=== PATIENT | female | born 1990 | race American Indian/Alaskan Native ===

== ENCOUNTER 2019-01-20 13:56 | Emergency (ER) | payer SELFPAY ==
[2019-01-20 14:17] VITALS: BP 127/78
--- NOTE | 2019-01-20 14:17 | Event Note ---
ED Screening Note Date of service: 01/20/19 Time: 14:15 ED Screening Note: 28 y/o female comes in for abd cramping. G1 Po LMP 12/18/18. This initial assessment/diagnostic orders/clinical plan/treatment(s) is/are subject to change based on patients health status, clinical progression and re-assessment by fellow clinical providers in the ED. Further treatment and workup at subsequent clinical providers discretion. Patient/guardian urged not to elope from the ED as their condition may be serious if not clinically assessed and managed. Initial orders include:
--- NOTE | 2019-01-20 15:02 | Emergency Department Report ---
ED N/V/D HPI - General Chief complaint: Nausea/Vomiting/Diarrhea Stated complaint: CRAMPING/NAUSEA Time Seen by Provider: 01/20/19 14:54 Source: patient Mode of arrival: Ambulatory Limitations: No Limitations - History of Present Illness Initial comments: 28-year-old -[place] female presents to ED with abdominal cramping, nausea, but no vomiting. Symptoms have been present for the past 3 days. No fever, chills or night sweats. She has not taken any medications for her symptoms. She rates symptoms as moderate in severity. -: Gradual, days(s) Description of Vomiting: food contents - Related Data Previous Rx's Medication Instructions Recorded Last Taken Type Ondansetron [Zofran ODT TAB] 4 mg PO ONCE 7 Days #10 tab.rapdis 01/20/19 Unknown Rx raNITIdine HCl [Acid Control] 75 mg PO DAILY #30 tablet 01/20/19 Unknown Rx Allergies Allergy/AdvReac Type Severity Reaction Status Date / Time No Known Allergies Allergy Verified 01/20/19 14:01 ED Review of Systems ROS: Stated complaint: CRAMPING/NAUSEA Other details as noted in HPI Comment: All other systems reviewed and negative Respiratory: denies: cough Cardiovascular: denies: chest pain Endocrine: denies: flushing Gastrointestinal: abdominal pain, nausea, vomiting Genitourinary: denies: urgency ED Past Medical Hx - Past Medical History Previous Medical History?: Yes Additional medical history: menieres disease - Surgical History Additional Surgical History: bilateral ear tubes,multiple as , at 12 - Social History Smoking Status: Never Smoker Substance Use Type: None - Medications Home Medications: Home Medications Medication Instructions Recorded Confirmed Last Taken Type Ondansetron [Zofran ODT TAB] 4 mg PO ONCE 7 Days #10 tab.rapdis 01/20/19 Unknown Rx raNITIdine HCl [Acid Control] 75 mg PO DAILY #30 tablet 01/20/19 Unknown Rx ED Physical Exam - General Limitations: No Limitations General appearance: alert, in no apparent distress - Head Head exam: Present: atraumatic, normocephalic - Eye Eye exam: Present: normal appearance Pupils: Present: normal accommodation - ENT ENT exam: Present: normal exam - Neck Neck exam: Present: normal inspection - Respiratory Respiratory exam: Present: normal lung sounds bilaterally - Cardiovascular Cardiovascular Exam: Present: regular rate, normal rhythm - GI/Abdominal GI/Abdominal exam: Present: soft, normal bowel sounds - Back Exam Back exam: Present: normal inspection - Neurological Exam Neurological exam: Present: alert, oriented X3 - Skin Skin exam: Present: warm, normal color ED Course Vital Signs 01/20/19 14:13 Temperature 97.9 F Pulse Rate 109 H Respiratory 20 Rate Blood Pressure 127/78 O2 Sat by Pulse 99 Oximetry ED Medical Decision Making - Lab Data Result diagrams: 01/20/19 15:06 01/20/19 15:06 Critical care attestation.: If time is entered above; I have spent that time in minutes in the direct care of this critically ill patient, excluding procedure time. ED Disposition Clinical Impression: Nausea Gastritis Qualifiers: Gastritis type: unspecified gastritis Chronicity: acute Gastritis bleeding: without bleeding Qualified Code(s): K29.00 - Acute gastritis without bleeding Disposition: DC-01 TO HOME OR SELFCARE Is pt being admited?: No Does the pt Need Aspirin: No Condition: Stable Instructions: Acute Nausea and Vomiting (ED) Prescriptions: raNITIdine HCl [Acid Control] 75 mg PO DAILY #30 tablet Ondansetron [Zofran ODT TAB] 4 mg PO ONCE 7 Days #10 tab.rapdis Referrals: CHAYA PARRA MD [Primary Care Provider] - 3-5 Days
[2019-01-20 15:10] LABS: HCG Qualitative,Urine Negative (Negative)
[2019-01-20 15:13] LABS: Bacteria,Urine 1+ /HPF (Negative); Bilirubin,Urine NEG (Negative); Blood,Urine NEG (Negative); Color,Urine Yellow (Yellow); Mucus,Urine FEW /HPF; Urobilinogen,Urine < 2.0 mg/dL (<2.0)
[2019-01-20 15:29] LABS: Basophils % (Auto) 0.4 % (0.0-1.8); Eosinophils # (Auto) 0.1 K/mm3 (0.0-0.4); Eosinophils % (Auto) 1.7 % (0.0-4.3); Hematocrit 38.1 % (30.3-42.9); Hemoglobin 12.4 gm/dl (10.1-14.3); Lymphocytes # (Auto) 1.8 K/mm3 (1.2-5.4); Lymphocytes % (Auto) 24.9 % (13.4-35.0); Mean Corpuscular HGB Conc 33 % (30-34); Mean Corpuscular Volume 79 fl (79-97); Monocytes # (Auto) 0.6 K/mm3 (0.0-0.8); Monocytes % (Auto) 8.3 % (0.0-7.3); Platelet Count 194 K/mm3 (140-440); Red Cell Distribution Width 15.9 % (13.2-15.2)
[2019-01-20] MEDS ORDERED: ZOFRAN ODT PO ONE (16:50)
[2019-01-20 16:57] LABS: Alanine Aminotransferase 13 units/L (7-56); Albumin 3.9 g/dL (3.9-5); BUN/Creatinine Ratio 23; Blood Urea Nitrogen 16 mg/dL (7-17); Calcium 9.4 mg/dL (8.4-10.2); Hemolysis Index 7
== END 2019-01-20 17:10 | disposition home or self-care (01) ==
LOC: ED 13:56
DX: K29.00 Acute gastritis without bleeding (principal); Z79.899 Other long term (current) drug therapy
CPT/HCPCS: 36415; 80053; 81001; 81025; 84703; 85025; Q0162

== ENCOUNTER 2019-02-08 21:50 | Emergency (ER) | payer SELFPAY ==
--- NOTE | 2019-02-08 22:09 | Emergency Department Report ---
Blank Doc - Documentation Documentation: This is a 28-year-old female that presents with abdominal pain with nausea. This initial assessment/diagnostic orders/clinical plan/treatment(s) is/are subject to change based on patient's health status, clinical progression and re- assessment by fellow clinical providers in the ED. Further treatment and workup at subsequent clinical providers discretion. Patient/guardians urged not to elope from the ED as their condition may be serious if not clinically assessed and managed. Initial orders include: 1- Patient sent to [facility] for further evaluation and treatment 2- UA
[2019-02-08 22:10] VITALS: BP 134/75
[2019-02-08 23:03] LABS: Basophils % (Auto) 0.3 % (0.0-1.8); Eosinophils # (Auto) 0.1 K/mm3 (0.0-0.4); Eosinophils % (Auto) 1.7 % (0.0-4.3); Hematocrit 35.4 % (30.3-42.9); Hemoglobin 11.7 gm/dl (10.1-14.3); Lymphocytes # (Auto) 2.2 K/mm3 (1.2-5.4); Lymphocytes % (Auto) 26.3 % (13.4-35.0); Mean Corpuscular HGB Conc 33 % (30-34); Mean Corpuscular Volume 80 fl (79-97); Monocytes # (Auto) 0.5 K/mm3 (0.0-0.8); Monocytes % (Auto) 6.5 % (0.0-7.3); Platelet Count 191 K/mm3 (140-440); Red Blood Count 4.45 M/mm3 (3.65-5.03)
[2019-02-08 23:27] LABS: Alanine Aminotransferase 13 units/L (7-56); BUN/Creatinine Ratio 24; Blood Urea Nitrogen 17 mg/dL (7-17); Calcium 9.2 mg/dL (8.4-10.2); Hemolysis Index 0
[2019-02-09 01:26] LABS: Bilirubin,Urine NEG (Negative); Blood,Urine NEG (Negative); Color,Urine Yellow (Yellow); Mucus,Urine 1+ /HPF; Urobilinogen,Urine < 2.0 mg/dL (<2.0)
--- NOTE | 2019-02-09 04:15 | Emergency Department Report ---
ED Female HPI - General Chief complaint: Abdominal Pain Stated complaint: ABDOMINAL PAIN Time Seen by Provider: 02/08/19 22:07 Source: patient Mode of arrival: Ambulatory Limitations: No Limitations - History of Present Illness MD Complaint: pelvic pain - Related Data Previous Rx's Medication Instructions Recorded Last Taken Type Ondansetron [Zofran ODT TAB] 4 mg PO ONCE 7 Days #10 tab.rapdis 01/20/19 Unknown Rx raNITIdine HCl [Acid Control] 75 mg PO DAILY #30 tablet 01/20/19 Unknown Rx Pnv,Calcium 72/Iron/Folic Acid 1 each PO DAILY #30 tablet 02/09/19 Unknown Rx [ Plus Tablet] Allergies Allergy/AdvReac Type Severity Reaction Status Date / Time Iodinated Contrast- Oral and Allergy Nausea Verified 02/08/19 21:56 IV Dye ED Review of Systems ROS: Stated complaint: ABDOMINAL PAIN Other details as noted in HPI ED Past Medical Hx - Past Medical History Previous Medical History?: Yes Additional medical history: menieres disease - Surgical History Additional Surgical History: bilateral ear tubes,multiple as , at 12 - Social History Smoking Status: Never Smoker - Medications Home Medications: Home Medications Medication Instructions Recorded Confirmed Last Taken Type Ondansetron [Zofran ODT TAB] 4 mg PO ONCE 7 Days #10 tab.rapdis 01/20/19 Unkn own Rx raNITIdine HCl [Acid Control] 75 mg PO DAILY #30 tablet 01/20/19 Unknown Rx Pnv,Calcium 72/Iron/Folic Acid 1 each PO DAILY #30 tablet 02/09/19 Unknown Rx [ Plus Tablet] ED Physical Exam - General Limitations: No Limitations ED Course Vital Signs 02/08/19 22:05 Temperature 98.7 F Pulse Rate 98 H Respiratory 18 Rate Blood Pressure 134/75 O2 Sat by Pulse 100 Oximetry ED Medical Decision Making - Lab Data Result diagrams: 02/08/19 22:42 02/08/19 22:42 Critical care attestation.: If time is entered above; I have spent that time in minutes in the direct care of this critically ill patient, excluding procedure time. ED Disposition Disposition: DC-01 TO HOME OR SELFCARE Condition: Stable Instructions: (ED), Abdominal Pain (ED) Prescriptions: Pnv,Calcium 72/Iron/Folic Acid [ Plus Tablet] 1 each PO DAILY #30 tablet Referrals: [facility] [Provider Group] - 3-5 Days [place] CHAYA SMITH MD [Primary Care Provider] - 3-5 Days
--- NOTE | 2019-02-10 08:40 | Ultrasound Report ---
OB Ultrasound HISTORY: Right lower quadrant pain for the past 2 weeks. Beta hCG of 1400 TECHNIQUE: Grayscale and color Doppler imaging performed. COMPARISON: None FINDINGS: Transabdominally and endovaginal imaging performed. Uterus measures 10.5 x 5.3 x 7.7 cm with endometrial echocomplex measuring 2 cm. There is a tiny cyst ic structure in the uterine body near the fundus with no yolk sac or pole identified. The mean sac diameter is 5 mm which would correspond with an EGA of 5 weeks and 2 days. There is a 2.6 cm simp le right ovarian cyst. The left ovary contains a 3.2 cm cyst which is slightly more complex with inte rnal echoes and may be hemorrhagic. IMPRESSION: 1. Tiny cystic intrauterine structure as above could represent an early gestation but no pole o r yolk sac identified at this time. Short-term beta hCG and possible ultrasound recommended for critical access hospital evaluation. 2. Bilateral ovarian cysts, mildly complex on the left and may be hemorrhagic. Signer Name: Dmitriy Hopkins MD Signed: 02/09/2019 3:29 AM Workstation Name: [id number]
== END 2019-02-09 04:15 | disposition home or self-care (01) ==
LOC: ED 21:50
DX: N83.201 Unspecified ovarian cyst, right side (principal); Z91.041 Radiographic dye allergy status; Z96.22 Myringotomy tube(s) status; Z79.899 Other long term (current) drug therapy
CPT/HCPCS: 36415; 76801; 76817; 80053; 81001; 83690; 84702; 84703; 85025; 99284

== ENCOUNTER 2019-02-14 23:21 | Emergency (ER) | payer MEDICAID ==
[2019-02-15 00:08] LABS: Basophils # (Auto) 0.1 K/mm3 (0.0-0.1); Basophils % (Auto) 1.4 % (0.0-1.8); Eosinophils # (Auto) 0.1 K/mm3 (0.0-0.4); Eosinophils % (Auto) 1.4 % (0.0-4.3); Hematocrit 34.8 % (30.3-42.9); Hemoglobin 11.6 gm/dl (10.1-14.3); Lymphocytes # (Auto) 2.4 K/mm3 (1.2-5.4); Lymphocytes % (Auto) 25.9 % (13.4-35.0); Mean Corpuscular HGB Conc 33 % (30-34); Mean Corpuscular Volume 79 fl (79-97); Monocytes # (Auto) 0.6 K/mm3 (0.0-0.8); Monocytes % (Auto) 6.8 % (0.0-7.3); Platelet Count 209 K/mm3 (140-440); Red Blood Count 4.42 M/mm3 (3.65-5.03); Red Cell Distribution Width 15.9 % (13.2-15.2)
[2019-02-15 00:30] LABS: Bilirubin,Urine NEG (Negative); Blood,Urine LG (Negative); Color,Urine Red (Yellow); Mucus,Urine FEW /HPF; Urobilinogen,Urine < 2.0 mg/dL (<2.0)
[2019-02-15 00:34] LABS: RBC,Urine > 182.0 /HPF (0.0-6.0); WBC,Urine > 182.0 /HPF (0.0-6.0)
--- NOTE | 2019-02-15 01:13 | Ultrasound Report ---
Transabdominal and transvaginal OB pelvic ultrasound INDICATION / CLINICAL INFORMATION: Vaginal bleeding and passing clots for one day. COMPARISON: None available. FINDINGS: TRANSABDOMINAL: The uterus measures 9.7 x 5.4 x 5.9 cm. The endometrial stripe measures 1.1 cm AP. No fibroids are seen. I do not identify an IUP. The right ovary measures 3.7 x 1.6 x 3.6 cm and contain s a 2.3 cm cyst. The left ovary measures 5.1 x 4.0 x 4.4 cm and contains a 2.7 cm cyst. No free fluid is seen. TRANSVAGINAL: There is a small complex sac like structure in the lower uterine segment measuring 5 we eks 5 days. I do not identify a pole or cardiac activity. The right ovary measures 2.2 x 1.8 x 2.5 cm. The left ovary measures 4.7 x 2.2 x 4.4 cm. There is a 3.4 cm complex cyst in the left ovary. Normal blood flow is seen to both ovaries on Doppler exam. There is a trace amount of free fluid in the cul-de-sac. IMPRESSION: 1. Small saclike structure in the lower uterine segment probably represents a missed /abortio n in progress. Depending on clinical findings, sonographic follow-up is recommended in 7-10 days. 2. 3.4 cm corpus luteal cyst in the left ovary. Signer Name: Carlos Hernández MD Signed: 02/15/2019 1:09 AM Workstation Name: [id number]
--- NOTE | 2019-02-15 02:11 | Emergency Department Report ---
ED HPI - General Chief complaint: Vaginal Bleeding Stated complaint: PASSED A BLOOD CLOT Time Seen by Provider: 02/15/19 01:30 Source: patient, EMS Mode of arrival: Ambulatory Limitations: No Limitations - History of Present Illness Initial comments: Patient is a 28-year-old female presents the emergency room with complaints of vaginal bleeding that began tonight. She did pass one blood clot into the toilet. she denies any abdominal pain, urinary symptoms, nausea, vomiting, diarrhea, fever. Last mental cycle was December 18. Patient has not seen an HELICOPTER DISPATCHER. She denies any past medical history or allergies to medications. /P:0/A:1 - Related Data Previous Rx's Medication Instructions Recorded Last Taken Type Ondansetron [Zofran ODT TAB] 4 mg PO ONCE 7 Days #10 tab.rapdis 01/20/19 Unknown Rx raNITIdine HCl [Acid Control] 75 mg PO DAILY #30 tablet 01/20/19 Unknown Rx Pnv,Calcium 72/Iron/Folic Acid 1 each PO DAILY #30 tablet 02/09/19 Unknown Rx [ Plus Tablet] cephALEXin [Keflex] 500 mg PO BID 7 Days #14 capsule 02/15/19 Unknown Rx Allergies Allergy/AdvReac Type Severity Reaction Status Date / Time Iodinated Contrast- Oral and Allergy Nausea Verified 02/08/19 21:56 IV Dye ED Review of Systems ROS: Stated complaint: PASSED A BLOOD CLOT Other details as noted in HPI Comment: All other systems reviewed and negative ED Past Medical Hx - Past Medical History Previous Medical History?: Yes Additional medical history: menieres disease - Surgical History Past Surgical History?: Yes Additional Surgical History: bilateral ear tubes,multiple as , at 12 - Social History Smoking Status: Never Smoker - Medications Home Medications: Home Medications Medication Instructions Recorded Confirmed Last Taken Type Ondansetron [Zofran ODT TAB] 4 mg PO ONCE 7 Days #10 tab.rapdis 01/20/19 Unknown Rx raNITIdine HCl [Acid Control] 75 mg PO DAILY #30 tablet 01/20/19 Unknown Rx Pnv,Calcium 72/Iron/Folic Acid 1 each PO DAILY #30 tablet 02/09/19 Unknown Rx [ Plus Tablet] cephALEXin [Keflex] 500 mg PO BID 7 Days #14 capsule 02/15/19 Unknown Rx ED Physical Exam - General Limitations: No Limitations General appearance: alert, in no apparent distress - Head Head exam: Present: atraumatic, normocephalic - Eye Eye exam: Present: normal appearance - ENT ENT exam: Present: mucous membranes moist - Respiratory Respiratory exam: Present: normal lung sounds bilaterally. Absent: respiratory distress, wheezes, rales, rhonchi, stridor, chest wall tenderness, accessory muscle use, decreased breath sounds, prolonged expiratory - Cardiovascular Cardiovascular Exam: Present: regular rate, normal rhythm, normal heart sounds. Absent: systolic murmur, diastolic murmur, rubs, gallop - GI/Abdominal GI/Abdominal exam: Present: soft, normal bowel sounds. Absent: distended, tenderness, guarding, rebound, rigid - Neurological Exam Neurological exam: Present: alert, oriented X3 - Psychiatric Psychiatric exam: Present: normal affect, normal mood - Skin Skin exam: Present: warm, dry, intact ED Course Vital Signs 02/14/19 02/14/19 02/15/19 23:33 23:39 03:02 Temperature 98.6 F 98.5 F 98.5 F Pulse Rate 104 H 103 H Respiratory 18 18 16 Rate Blood Pressure 128/81 128/81 Blood Pressure 104/54 [Left] O2 Sat by Pulse 99 98 100 Oximetry ED Medical Decision Making - Lab Data Result diagrams: 02/14/19 23:50 Lab Results 02/14/19 02/14/19 02/14/19 Range/Units 23:50 23:50 23:50 WBC 9.1 (4.5-11.0) K/mm3 RBC 4.42 (3.65-5.03) M/mm3 Hgb 11.6 (10.1-14.3) gm/dl Hct 34.8 (30.3-42.9) % MCV 79 (79-97) fl MCH 26 L (28-32) pg MCHC 33 (30-34) % RDW 15.9 H (13.2-15.2) % Plt Count 209 (140-440) K/mm3 Lymph % (Auto) 25.9 (13.4-35.0) % [place] % (Auto) 6.8 (0.0-7.3) % Eos % (Auto) 1.4 (0.0-4.3) % Baso % (Auto) 1.4 (0.0-1.8) % Lymph # 2.4 (1.2-5.4) K/mm3 [place] # 0.6 (0.0-0.8) K/mm3 Eos # 0.1 (0.0-0.4) K/mm3 Baso # 0.1 (0.0-0.1) K/mm3 Seg Neutrophils % 64.5 (40.0-70.0) % Seg Neutrophils # 5.9 (1.8-7.7) K/mm3 HCG, Quant 1105 H (0-4) mIU/mL Urine Color Red (Yellow) Urine Turbidity Cloudy (Clear) Urine pH 6.0 (5.0-7.0) Ur Specific [place] 1.028 (1.003-1.030) Urine Protein 100 mg/dl (Negative) mg/dL Urine Glucose (UA) Neg (Negative) mg/dL Urine Ketones Neg (Negative) mg/dL Urine Blood Lg (Negative) Urine Nitrite Neg (Negative) Urine Bilirubin Neg (Negative) Urine Urobilinogen < 2.0 (<2.0) mg/dL Ur Leukocyte Esterase Sm (Negative) Urine WBC (Auto) > 182.0 H (0.0-6.0) /HPF Urine RBC (Auto) > 182.0 (0.0-6.0) /HPF U Epithel Cells (Auto) 16.0 H (0-13.0) /HPF Urine Mucus Few /HPF Urine Yeast (Budding) 3+ /HPF Blood Type 02/14/19 Range/Units 23:50 WBC (4.5-11.0) K/mm3 RBC (3.65-5.03) M/mm3 Hgb (10.1-14.3) gm/dl Hct (30.3-42.9) % MCV (79-97) fl MCH (28-32) pg MCHC (30-34) % RDW (13.2-15.2) % Plt Count (140-440) K/mm3 Lymph % (Auto) (13.4-35.0) % [place] % (Auto) (0.0-7.3) % Eos % (Auto) (0.0-4.3) % Baso % (Auto) (0.0-1.8) % Lymph # (1.2-5.4) K/mm3 [place] # (0.0-0.8) K/mm3 Eos # (0.0-0.4) K/mm3 Baso # (0.0-0.1) K/mm3 Seg Neutrophils % (40.0-70.0) % Seg Neutrophils # (1.8-7.7) K/mm3 HCG, Quant (0-4) mIU/mL Urine Color (Yellow) Urine Turbidity (Clear) Urine pH (5.0-7.0) Ur Specific [place] (1.003-1.030) Urine Protein (Negative) mg/dL Urine Glucose (UA) (Negative) mg/dL Urine Ketones (Negative) mg/dL Urine Blood (Negative) Urine Nitrite (Negative) Urine Bilirubin (Negative) Urine Urobilinogen (<2.0) mg/dL Ur Leukocyte Esterase (Negative) Urine WBC (Auto) (0.0-6.0) /HPF Urine RBC (Auto) (0.0-6.0) /HPF U Epithel Cells (Auto) (0-13.0) /HPF Urine Mucus /HPF Urine Yeast (Budding) /HPF Blood Type O POSITIVE - Radiology Data Radiology results: report reviewed Transabdominal and transvaginal OB pelvic ultrasound INDICATION / CLINICAL INFORMATION: Vaginal bleeding and passing clots for one day. COMPARISON: None available. FINDINGS: TRANSABDOMINAL: The uterus measures 9.7 x 5.4 x 5.9 cm. The endometrial stripe measures 1.1 cm AP. No fibroids are seen. I do not identify an IUP. The right ovary measures 3.7 x 1.6 x 3.6 cm and con tains a 2.3 cm cyst. The left ovary measures 5.1 x 4.0 x 4.4 cm and contains a 2.7 cm cyst. No free fluid is seen. TRANSVAGINAL: There is a small complex sac like structure in the lower uterine segment measuring 5 weeks 5 days. I do not identify a pole or cardiac activity. The right ovary measures 2.2 x 1.8 x 2.5 cm. The left ovary measures 4.7 x 2.2 x 4.4 cm. There is a 3.4 cm complex cyst in the left ovary. Normal blood flow is seen to both ovaries on Doppler exam. There is a trace amount of free fluid in the cul-de-sac. IMPRESSION: 1. Small saclike structure in the lower uterine segment probably represents a missed / in progress. Depending on clinical findings, sonographic follow-up is recommended in 7-10 days. 2. 3.4 cm corpus luteal cyst in the left ovary. Signer Name: Carlos Hernández MD Signed: 02/15/2019 1:09 AM Workstation Name: [id number] Transcribed By: RT Dictated By: Carlos Hernández MD Electronically Authenticated By: Carlos Hernández MD Signed Date/Time: 02/15/19 0109 - Medical Decision Making Patient is a 28-year-old female presents the emergency room with complaints of vaginal bleeding that began tonight. She did pass one blood clot into the toilet. she denies any abdominal pain, urinary symptoms, nausea, vomiting, diarrhea, fever. Last mental cycle was December 18. Patient has not seen an HELICOPTER DISPATCHER. She denies any past medical history or allergies to medications. /P:0/A:1. VSS. no abdominal tenderness on exam. UA shows many WBCs, many RBCs, and small leukocyte esterase. H/H are normal. no leukocytosis. pt is Rh positive. OB US interpreted by radiologist as 1. Small saclike structure in the lower uterine segment probably represents a missed / in progress. Depending on clinical findings, sonographic follow-up is recommended in 7-10 days. 2. 3.4 cm corpus luteal cyst in the left ovary. discussed results with pt and discussed the importance of HELICOPTER DISPATCHER follow up to make sure she has a complete . pt given ceftriaxone injection while in the ED. pt given prescription for keflex. advised to take medication as prescribed. Please follow up with an HELICOPTER DISPATCHER in the next 2-3 days. It is very important that you follow-up with an HELICOPTER DISPATCHER in the next 2-3 days for reevaluation. Return to the emergency room for any new or worsening symptoms. - Differential Diagnosis IUP, placenta previa, subchorionic hemorrhage, UTI, , cysts Critical care attestation.: If time is entered above; I have spent that time in minutes in the direct care of this critically ill patient, excluding procedure time. ED Disposition Clinical Impression: Spontaneous UTI (urinary tract infection) Qualifiers: Urinary tract infection type: acute cystitis Hematuria presence: with hematuria Qualified Code(s): N30.01 - Acute cystitis with hematuria Disposition: - TO HOME OR SELFCARE Is pt being admited?: No Does the pt Need Aspirin: No Condition: Stable Instructions: Spontaneous Miscarriage (ED), Urinary Tract Infection in Women (ED) Additional Instructions: take medication as prescribed. Please follow up with an HELICOPTER DISPATCHER in the next 2-3 days. It is very important that you follow-up with an HELICOPTER DISPATCHER in the next 2-3 days for reevaluation. Return to the emergency room for any new or worsening symptoms. Prescriptions: cephALEXin [Keflex] 500 mg PO BID 7 Days #14 capsule Referrals: [facility] [Provider Group] - 2-3 Days [id number] [Provider Group] - 2-3 Days Time of Disposition: 02:11 Print Language: LAO
[2019-02-15] MEDS ORDERED: ROCEPHIN IM ONE (02:13)
[2019-02-15] MEDS ORDERED: XYLOCAINE 1% MPF 5 mL INFILTRATI ONE (02:13)
[2019-02-15 03:03] VITALS: BP 104/54
--- NOTE | 2019-02-17 18:01 | Emergency Department Report ---
Blank Doc - Documentation Documentation: pt called and states that she lost her prescription for keflex reprinted presc ription and left at front office agent
== END 2019-02-15 03:04 | disposition home or self-care (01) ==
LOC: ED 23:21
DX: O20.0 Threatened abortion (principal); O23.41 Unspecified infection of urinary tract in pregnancy, first trimester; Z3A.01 Less than 8 weeks gestation of pregnancy; Z79.899 Other long term (current) drug therapy; Z91.041 Radiographic dye allergy status; Z96.22 Myringotomy tube(s) status
CPT/HCPCS: 36415; 76801; 76817; 81001; 84702; 85025; 86900; 86901; 96372; 99284; J0696

== ENCOUNTER 2019-07-16 17:45 | Emergency (ER) | payer MEDICAID, MEDICARE ==
[2019-07-16] MEDS ORDERED: dexAMETHasone 4 MG/ML VIAL IM ONE (21:37)
--- NOTE | 2019-07-16 21:37 | Emergency Department Report ---
ED ENT HPI - General Chief complaint: Sore Throat Stated complaint: THROAT PAIN/CANT BREATH Time Seen by Provider: 07/16/19 20:57 Source: patient Mode of arrival: Ambulatory Limitations: No Limitations - History of Present Illness Initial comments: This is a 29 y.o. F. that presents to the ER with sore throat, fever, chills, and myalgia for 3 days. Patient taking OTC cold and flu medication with minimal improvements. Reports nausea without vomiting. Denies abdominal pain, weakness, headache, chest pain, palpitations, drooling, or vocal changes. MD complaint: sore throat Onset/Timin -: days(s) Location: throat Severity: moderate Severity scale (0 -10): 6 Quality: aching Consistency: intermittent Improves with: none Worsens with: swallowing, eating Associated Symptoms: fever, cough, pain with swallowing, sore throat, rhinorrhea. denies: gum swelling, toothache, tinnitus, hearing loss, discharge from ear - Related Data Previous Rx's Medication Instructions Recorded Last Taken Type raNITIdine HCl [Acid Control] 75 mg PO DAILY #30 tablet 01/20/19 Unknown Rx Pnv,Calcium 72/Iron/Folic Acid 1 each PO DAILY #30 tablet 02/09/19 Unknown Rx [ Plus Tablet] cephALEXin [Keflex] 500 mg PO BID 7 Days #14 capsule 02/15/19 Unknown Rx Benzonatate [Tessalon Perles] 100 mg PO Q8HR PRN #30 capsule 07/16/19 Unknown Rx Ondansetron [Zofran ODT TAB] 4 mg PO ONCE 7 Days #10 tab.rapdis 07/16/19 Unknown Rx methylPREDNISolone [Medrol 4MG 4 mg PO DAILY #1 tab.ds.pk 07/16/19 Unknown Rx DOSEPAK (21 tabs)] Allergies Allergy/AdvReac Type Severity Reaction Status Date / Time Iodinated Contrast Media Allergy Nausea Verified 02/08/19 21:56 [Iodinated Contrast- Oral and IV Dye] ED Dental HPI - General Chief complaint: Sore Throat Stated complaint: THROAT PAIN/CANT BREATH Time Seen by Provider: 07/16/19 20:57 Source: patient Mode of arrival: Ambulatory Limitations: No Limitations - Related Data Previous Rx's Medication Instructions Recorded Last Taken Type raNITIdine HCl [Acid Control] 75 mg PO DAILY #30 tablet 01/20/19 Unknown Rx Pnv,Calcium 72/Iron/Folic Acid 1 each PO DAILY #30 tablet 02/09/19 Unknown Rx [ Plus Tablet] cephALEXin [Keflex] 500 mg PO BID 7 Days #14 capsule 02/15/19 Unknown Rx Benzonatate [Tessalon Perles] 100 mg PO Q8HR PRN #30 capsule 07/16/19 Unknown Rx Ondansetron [Zofran ODT TAB] 4 mg PO ONCE 7 Days #10 tab.rapdis 07/16/19 Unknown Rx methylPREDNISolone [Medrol 4MG 4 mg PO DAILY #1 tab.ds.pk 07/16/19 Unknown Rx DOSEPAK (21 tabs)] Allergies Allergy/AdvReac Type Severity Reaction Status Date / Time Iodinated Contrast Media Allergy Nausea Verified 02/08/19 21:56 [Iodinated Contrast- Oral and IV Dye] ED Review of Systems ROS: Stated complaint: THROAT PAIN/CANT BREATH Other details as noted in HPI Constitutional: chills. denies: fever ENT: throat pain, congestion. denies: ear pain Respiratory: cough. denies: shortness of breath, wheezing Cardiovascular: denies: chest pain, palpitations Gastrointestinal: nausea. denies: abdominal pain, vomiting, diarrhea Musculoskeletal: myalgia. denies: back pain, joint swelling, arthralgia Skin: denies: rash, lesions Neurological: headache. denies: weakness, paresthesias Psychiatric: denies: anxiety, depression ED Past Medical Hx - Past Medical History Previous Medical History?: Yes Additional medical history: menieres disease - Surgical History Past Surgical History?: Yes Additional Surgical History: bilateral ear tubes,multiple as , at 12 - Social History Smoking Status: Never Smoker Substance Use Type: None - Medications Home Medications: Home Medications Medication Instructions Recorded Confirmed Last Taken Type raNITIdine HCl [Acid Control] 75 mg PO DAILY #30 tablet 01/20/19 Unknown Rx Pnv,Calcium 72/Iron/Folic Acid 1 each PO DAILY #30 tablet 02/09/19 Unknown Rx [ Plus Tablet] cephALEXin [Keflex] 500 mg PO BID 7 Days #14 capsule 02/15/19 Unknown Rx Benzonatate [Tessalon Perles] 100 mg PO Q8HR PRN #30 capsule 07/16/19 Unknown Rx Ondansetron [Zofran ODT TAB] 4 mg PO ONCE 7 Days #10 tab.rapdis 07/16/19 Unknown Rx methylPREDNISolone [Medrol 4MG 4 mg PO DAILY #1 tab.ds.pk 07/16/19 Unknown Rx DOSEPAK (21 tabs)] ED Physical Exam - General Limitations: No Limitations General appearance: alert, in no apparent distress, obese - ENT ENT exam: Present: mucous membranes moist, TM's normal bilaterally, normal external ear exam. Absent: normal orophraynx (erythematous posterior pharynx, uvula midline, no exudate) - Respiratory Respiratory exam: Present: normal lung sounds bilaterally. Absent: respiratory distress - Cardiovascular Cardiovascular Exam: Present: regular rate, normal rhythm. Absent: systolic murmur, diastolic murmur, rubs, gallop - GI/Abdominal GI/Abdominal exam: Present: soft, normal bowel sounds. Absent: distended, tenderness, guarding, rebound, rigid - Neurological Exam Neurological exam: Present: alert, oriented X3, normal gait - Psychiatric Psychiatric exam: Present: normal affect, normal mood - Skin Skin exam: Present: warm, dry, intact, normal color. Absent: rash ED Course Vital Signs 07/16/19 07/16/19 17:49 22:08 Temperature 98.6 F 98.0 F Pulse Rate 113 H 106 H Respiratory 15 18 Rate Blood Pressure 138/69 114/73 [Right] O2 Sat by Pulse 97 97 Oximetry ED Medical Decision Making - Lab Data Lab Results 07/16/19 07/16/19 Range/Units 17:53 Unknown Influenza A (Rapid) Negative (Negative) Influenza B (Rapid) Negative (Negative) Group A Strep Rapid Negative (Negative) - Medical Decision Making This is a 29 y.o. F. that presents to the ER with sore throat for 3 days. VSS. Patient in no acute distress. Rapid flu and strep obtained and negative. No history of immunocompromise. Nontoxic appearance. No trismus. No airway compromise. Able to tolerate PO. Given History and Exam I have low suspicion for this presentation being caused by PROPERTY ECONOMIST, RPA, Epiglottitis or Bacterial Tracheitis, acute HIV, and Strep throat. Given dexamethasone. Start medrol dose pack, anson lincoln. Discharge home with prompt outpatient PCP follow up; return precautions discussed. Critical care attestation.: If time is entered above; I have spent that time in minutes in the direct care of this critically ill patient, excluding procedure time. ED Disposition Clinical Impression: Sore throat (viral), Cough in adult Pharyngitis Qualifiers: Pharyngitis/tonsillitis etiology: unspecified etiology Qualified Code(s): J02.9 - Acute pharyngitis, unspecified Disposition: - TO HOME OR SELFCARE Is pt being admited?: No Condition: Stable Instructions: Pharyngitis (ED) Prescriptions: methylPREDNISolone [Medrol 4MG DOSEPAK (21 tabs)] 4 mg PO DAILY #1 tab.ds.pk Benzonatate [Tessalon Perles] 100 mg PO Q8HR PRN #30 capsule PRN Reason: Cough Ondansetron [Zofran ODT TAB] 4 mg PO ONCE 7 Days #10 tab.rapdis Referrals: [facility] [Outside] - 3-5 Days [facility] [Outside] - 3-5 Days [facility] [Provider Group] - 3-5 Days KIRSTEN SPAIN MD [Staff Physician] - 3-5 Days Forms: Work/School Release Form(ED) Time of Disposition: 21:46
[2019-07-16 22:09] VITALS: BP 114/73
== END 2019-07-16 22:07 | disposition home or self-care (01) ==
LOC: ED 17:45
DX: J02.8 Acute pharyngitis due to other specified organisms (principal)
CPT/HCPCS: 87116; 87400; 87430; 96372; 99283; J1100

== ENCOUNTER 2019-08-20 01:21 | Emergency (ER) | payer MEDICARE ==
[2019-08-20 02:07] VITALS: BP 121/79
--- NOTE | 2019-08-20 03:16 | Emergency Department Report ---
ED Female HPI - General Chief complaint: Abdominal Pain Stated complaint: ABDOMINAL PAIN, VAGINAL DISCHARGE Time Seen by Provider: 08/20/19 03:08 Source: patient Mode of arrival: Ambulatory Limitations: No Limitations - History of Present Illness Initial comments: Ms Cortés is s 29 y/o -[place] female who presents for vaginal discharge white thick malodorous times x2 weeks. She is now starting to have abdominal cramps for the past week she denies concern for STD. There is no fevers no chills. There is no nausea or vomiting. There is no exacerbating or relieving factors. MD Complaint: vaginal discharge Onset/Timin -: week(s) Location: suprapubic Radiation: suprapubic Severity: moderate Severity scale (0 -10): 4 Quality: cramping, other (itching ) Consistency: constant Improves with: none Worsens with: none Are you Now?: No Last Menstrual Period: 08/02/19 EDC: 05/08/20 Associated Symptoms: vaginal discharge (white thick malodorous ). denies: dysuria, hematuria - Related Data Sexually active: Yes Previous Rx's Medication Instructions Recorded Last Taken Type raNITIdine HCl [Acid Control] 75 mg PO DAILY #30 tablet 01/20/19 Unknown Rx Pnv,Calcium 72/Iron/Folic Acid 1 each PO DAILY #30 tablet 02/09/19 Unknown Rx [ Plus Tablet] cephALEXin [Keflex] 500 mg PO BID 7 Days #14 capsule 02/15/19 Unknown Rx Benzonatate [Tessalon Perles] 100 mg PO Q8HR PRN #30 capsule 07/16/19 Unknown Rx Ondansetron [Zofran ODT TAB] 4 mg PO ONCE 7 Days #10 tab.rapdis 07/16/19 Unknown Rx methylPREDNISolone [Medrol 4MG 4 mg PO DAILY #1 tab.ds.pk 07/16/19 Unknown Rx DOSEPAK (21 tabs)] Amoxicillin/Potassium Clav 1 each PO BID 10 Days #20 tablet 07/23/19 Unknown Rx [Augmentin 875-125 Tablet] Ciprofloxacin HCl/Dexameth 4 drops TP BID 10 Days #7.5 ml 07/23/19 Unknown Rx [Ciprodex Otic Suspension] Ibuprofen [Motrin 800 MG tab] 800 mg PO Q8HR PRN #30 tablet 07/23/19 Unknown Rx metroNIDAZOLE [Flagyl] 500 mg PO BID 7 Days #14 tab 08/20/19 Unknown Rx Allergies Allergy/AdvReac Type Severity Reaction Status Date / Time Iodinated Contrast Media Allergy Nausea Verified 02/08/19 21:56 [Iodinated Contrast- Oral and IV Dye] ED Review of Systems ROS: Stated complaint: ABDOMINAL PAIN, VAGINAL DISCHARGE Other details as noted in HPI Constitutional: denies: chills, fever Eyes: denies: eye pain, eye discharge, vision change ENT: denies: ear pain, throat pain Respiratory: denies: cough, shortness of breath, wheezing Cardiovascular: denies: chest pain, palpitations Endocrine: no symptoms reported Gastrointestinal: abdominal pain. denies: nausea, vomiting, melena Genitourinary: discharge. denies: urgency, dysuria, frequency, hematuria, abnormal menses, dyspareunia Musculoskeletal: back pain. denies: joint swelling, arthralgia Skin: denies: rash, lesions Neurological: denies: headache, weakness, paresthesias Psychiatric: denies: anxiety, depression Hematological/Lymphatic: denies: easy bleeding, easy bruising ED Past Medical Hx - Past Medical History Previous Medical History?: No Additional medical history: menieres disease - Surgical History Past Surgical History?: Yes Additional Surgical History: bilateral ear tubes,multiple as infant, at 12 - Social History Smoking Status: Never Smoker Substance Use Type: None - Medications Home Medications: Home Medications Medication Instructions Recorded Confirmed Last Taken Type raNITIdine HCl [Acid Control] 75 mg PO DAILY #30 tablet 01/20/19 Unknown Rx Pnv,Calcium 72/Iron/Folic Acid 1 each PO DAILY #30 tablet 02/09/19 Unknown Rx [ Plus Tablet] cephALEXin [Keflex] 500 mg PO BID 7 Days #14 capsule 02/15/19 Unknown Rx Benzonatate [Tessalon Perles] 100 mg PO Q8HR PRN #30 capsule 07/16/19 Unknown Rx Ondansetron [Zofran ODT TAB] 4 mg PO ONCE 7 Days #10 tab.rapdis 07/16/19 Unknown Rx methylPREDNISolone [Medrol 4MG 4 mg PO DAILY #1 tab.ds.pk 07/16/19 Unknown Rx DOSEPAK (21 tabs)] Amoxicillin/Potassium Clav 1 each PO BID 10 Days #20 tablet 07/23/19 Unknown Rx [Augmentin 875-125 Tablet] Ciprofloxacin HCl/Dexameth 4 drops TP BID 10 Days #7.5 ml 07/23/19 Unknown Rx [Ciprodex Otic Suspension] Ibuprofen [Motrin 800 MG tab] 800 mg PO Q8HR PRN #30 tablet 07/23/19 Unknown Rx metroNIDAZOLE [Flagyl] 500 mg PO BID 7 Days #14 tab 08/20/19 Unknown Rx ED Physical Exam - General Limitations: No Limitations General appearance: alert, in no apparent distress - Head Head exam: Present: atraumatic, normocephalic - Eye Eye exam: Present: normal appearance - ENT ENT exam: Present: normal exam - Neck Neck exam: Present: normal inspection - Respiratory Respiratory exam: Present: normal lung sounds bilaterally. Absent: respiratory distress, wheezes, stridor, chest wall tenderness - Cardiovascular Cardiovascular Exam: Present: regular rate, normal rhythm, normal heart sounds. Absent: systolic murmur, diastolic murmur, rubs, gallop - GI/Abdominal GI/Abdominal exam: Present: soft, normal bowel sounds. Absent: distended, tenderness, guarding, rebound, rigid, bruit, hernia - Rectal Rectal exam: Present: deferred - External exam: Present: normal external exam Speculum exam: Present: erythema, vaginal discharge (white thick malodorous ). Absent: cervical discharge, vaginal bleeding, foreign body, tissue, laceration Bi-manual exam: Absent: cervical motion tendernes - Extremities Exam Extremities exam: Present: normal inspection - Back Exam Back exam: Present: normal inspection, full ROM. Absent: tenderness, CVA tenderness (R), CVA tenderness (L), vertebral tenderness - Neurological Exam Neurological exam: Present: alert - Psychiatric Psychiatric exam: Present: normal affect, normal mood - Skin Skin exam: Present: warm, dry, intact, normal color. Absent: rash ED Course Vital Signs 08/20/19 01:27 Temperature 98.9 F Pulse Rate 98 H Respiratory 16 Rate Blood Pressure 121/79 O2 Sat by Pulse 99 Oximetry ED Medical Decision Making - Medical Decision Making this is BV plan : Flagyl, follow up with CORPORATE LEGAL ASSISTANT in 2-3 days, pt verbalized agreement and understanding of discharge plan. Critical care attestation.: If time is entered above; I have spent that time in minutes in the direct care of this critically ill patient, excluding procedure time. ED Disposition Clinical Impression: Bacterial vaginosis Disposition: TO HOME OR SELFCARE Is pt being admited?: No Does the pt Need Aspirin: No Condition: Stable Instructions: Abdominal Pain (ED), Bacterial Vaginosis (ED) Prescriptions: metroNIDAZOLE [Flagyl] 500 mg PO BID 7 Days #14 tab Referrals: GEORGE WISE MD [Staff Physician] - 3-5 Days Forms: STI Treatment and Prevention Time of Disposition: 04:28
[2019-08-20 04:07] LABS: HCG Qualitative,Urine Negative (Negative)
[2019-08-20 04:08] LABS: Bilirubin,Urine NEG (Negative); Blood,Urine NEG (Negative); Color,Urine Yellow (Yellow); Mucus,Urine FEW /HPF; Protein,Urine <15 mg/dL mg/dL (Negative); Urobilinogen,Urine < 2.0 mg/dL (<2.0); WBC,Urine < 1.0 /HPF (0.0-6.0)
== END 2019-08-20 04:40 | disposition home or self-care (01) ==
LOC: ED 01:21
DX: N76.0 Acute vaginitis (principal); B96.89 Other specified bacterial agents as the cause of diseases classified elsewhere; Z98.890 Other specified postprocedural states; Z79.1 Long term (current) use of non-steroidal anti-inflammatories (NSAID); Z79.2 Long term (current) use of antibiotics; Z79.899 Other long term (current) drug therapy; Z91.048 Other nonmedicinal substance allergy status
CPT/HCPCS: 81001; 81025; 87210

== ENCOUNTER 2019-09-07 13:40 | Emergency (ER) | payer MEDICARE ==
--- NOTE | 2019-09-07 18:40 | Emergency Department Report ---
HPI - General Chief Complaint: Vaginal Bleeding Time Seen by Provider: 09/07/19 18:11 - HPI HPI: 29-year-old -I[place] female presents to the emergency department with complaint of some vaginal bleeding and pelvic cramping that started yesterday. The patient is currently about 6 weeks . With this she is G3, P0 with one previous miscarriage last year and 1 previous . The patient found out she was from a home test. She then got it confirmed at a doctor's office and said at that time, about 1 month ago, her beta-hCG was about 430. She is having a moderate amount of brownish blood. She took some Tylenol for her symptoms earlier today. She does not have any [employer] INSURANCE. ED Past Medical Hx - Past Medical History Previous Medical History?: Yes Additional medical history: menieres disease - Surgical History Past Surgical History?: Yes Additional Surgical History: bilateral ear tubes,multiple as , at 12 - Social History Smoking Status: Never Smoker Substance Use Type: None - Medications Home Medications: Home Medications Medication Instructions Recorded Confirmed Last Taken Type raNITIdine HCl [Acid Control] 75 mg PO DAILY #30 tablet 01/20/19 Unknown Rx cephALEXin [Keflex] 500 mg PO BID 7 Days #14 capsule 02/15/19 Unknown Rx Benzonatate [Tessalon Perles] 100 mg PO Q8HR PRN #30 capsule 07/16/19 Unknown Rx Ondansetron [Zofran ODT TAB] 4 mg PO ONCE 7 Days #10 tab.rapdis 07/16/19 Unknown Rx methylPREDNISolone [Medrol 4MG 4 mg PO DAILY #1 tab.ds.pk 07/16/19 Unknown Rx DOSEPAK (21 tabs)] Amoxicillin/Potassium Clav 1 each PO BID 10 Days #20 tablet 07/23/19 Unknown Rx [Augmentin 875-125 Tablet] Ciprofloxacin HCl/Dexameth 4 drops TP BID 10 Days #7.5 ml 07/23/19 Unknown Rx [Ciprodex Otic Suspension] Ibuprofen [Motrin 800 MG tab] 800 mg PO Q8HR PRN #30 tablet 07/23/19 Unknown Rx metroNIDAZOLE [Flagyl] 500 mg PO BID 7 Days #14 tab 08/20/19 Unknown Rx Pnv,Calcium 72/Iron/Folic Acid 1 each PO DAILY #30 tablet 09/07/19 Unknown Rx [ Plus Tablet] ED Review of Systems ROS: Stated complaint: 6 WKS PREG AND BLEEDING Other details as noted in HPI Comment: All other systems reviewed and negative Constitutional: denies: chills, fever Eyes: denies: eye pain, vision change ENT: denies: ear pain, throat pain Respiratory: denies: cough, shortness of breath Cardiovascular: denies: chest pain, palpitations Gastrointestinal: denies: nausea, vomiting Genitourinary: other (pelvic cramping, vaginal bleeding) Musculoskeletal: denies: back pain, arthralgia Neurological: denies: weakness, numbness Physical Exam - Physical Exam Vital Signs: Vital Signs 09/07/19 14:46 Temperature 98.4 F Pulse Rate 77 Respiratory 18 Rate Blood Pressure 112/60 O2 Sat by Pulse 100 Oximetry Physical Exam: GENERAL: The patient is well-developed well-nourished. HENT: Normocephalic. Atraumatic. Patient has moist mucous membranes. EYES: Extraocular motions are intact. NECK: Supple. Trachea is midline. CHEST/LUNGS: Clear to auscultation. There is no respiratory distress noted. HEART/CARDIOVASCULAR: Regular. There is no tachycardia. ABDOMEN: Abdomen is soft, nontender. Patient has normal bowel sounds. There is no abdominal distention. SKIN: Skin is warm and dry. NEURO: The patient is awake, alert, and oriented. The patient is cooperative. Normal speech. MUSCULOSKELETAL: There is no tenderness or deformity. There is no evidence of acute injury. ED Course Vital Signs 09/07/19 14:46 Temperature 98.4 F Pulse Rate 77 Respiratory 18 Rate Blood Pressure 112/60 O2 Sat by Pulse 100 Oximetry ED Medical Decision Making - Lab Data Result diagrams: 09/07/19 18:41 09/07/19 18:41 - Radiology Data Radiology results: report reviewed Obstetrical ultrasound first trimester INDICATION: Pelvic pain vaginal bleeding. female FINDINGS: There is a single living intrauterine with a crown-rump length that measures about 5 mm measuring 6 weeks and 2 days. The uterus is grossly unremarkable. No significant free pelvic fluid was appreciated. Both ovaries are unremarkable. The heart rate measured about 115 bpm. IMPRESSION: Single living intrauterine measuring about 6 weeks and 2 days. - Medical Decision Making This patient presents to the emergency department with some pelvic cramping and vaginal bleeding while . She says that her beta-hCG about 1 month ago was about 500. Today the hormone level is about 9800. Obstetric ultrasound shows a single living intrauterine at about 6 weeks and 2 days. Patient is Rh+. Discussed all the lab and imaging results with the patient. She will be placed on vitamins and has been given multiple referrals for [employer]OR INSURANCE for follow-up. She will return to the ER with any worsening of her symptoms or any acute distress. - Differential Diagnosis , threatened miscarriage, spontaneous miscarriage, fibroids Critical Care Time: No Critical care attestation.: If time is entered above; I have spent that time in minutes in the direct care of this critically ill patient, excluding procedure time. ED Disposition Clinical Impression: Threatened Qualifiers: Weeks of gestation: less than 8 weeks Qualified Code(s): Z3A.01 - Less than 8 weeks gestation of Disposition: DC- TO HOME OR SELFCARE Is pt being admited?: No Condition: Stable Instructions: Threatened Miscarriage (ED), (ED) Additional Instructions: Please follow-up with a DIRECTOR INSURANCE in the next few days. Take the vitamins. Return to the emergency department immediately with any worsening of your symptoms including increased pelvic pain, increased vaginal bleeding, or with any acute distress. You can take Tylenol every 4-6 hours, using the dosing on the back of the bottle, as needed for any discomfort. Otherwise do not take any medications that are not prescribed by a physician. Your hormone level, beta hCG, was 9700 today. Prescriptions: Pnv,Calcium 72/Iron/Folic Acid [ Plus Tablet] 1 each PO DAILY #30 tablet Referrals: PRIMARY CARE [Primary Care Provider] - 2-3 Days [facility] [Provider Group] - 2-3 Days [facility] [Provider Group] - 2-3 Days [facility] [Provider Group] - 2-3 Days Time of Disposition: 21:05
[2019-09-07 18:55] LABS: Basophils % (Auto) 0.7 % (0.0-1.8); Eosinophils # (Auto) 0.1 K/mm3 (0.0-0.4); Eosinophils % (Auto) 1.7 % (0.0-4.3); Hematocrit 36.5 % (30.3-42.9); Hemoglobin 11.7 gm/dl (10.1-14.3); Lymphocytes # (Auto) 1.6 K/mm3 (1.2-5.4); Lymphocytes % (Auto) 24.2 % (13.4-35.0); Mean Corpuscular HGB Conc 32 % (30-34); Mean Corpuscular Volume 79 fl (79-97); Monocytes # (Auto) 0.5 K/mm3 (0.0-0.8); Monocytes % (Auto) 7.5 % (0.0-7.3); Platelet Count 180 K/mm3 (140-440); Red Blood Count 4.63 M/mm3 (3.65-5.03); Red Cell Distribution Width 16.6 % (13.2-15.2)
[2019-09-07 19:14] LABS: BUN/Creatinine Ratio 21; Blood Urea Nitrogen 17 mg/dL (7-17); Calcium 9.3 mg/dL (8.4-10.2); Hemolysis Index 4
--- NOTE | 2019-09-07 20:31 | Ultrasound Report ---
Obstetrical ultrasound first trimester INDICATION: Pelvic pain vaginal bleeding. female FINDINGS: There is a single living intrauterine with a crown-rump length that measures abou t 5 mm measuring 6 weeks and 2 days. The uterus is grossly unremarkable. No significant free pelvic f luid was appreciated. Both ovaries are unremarkable. The heart rate measured about 115 bpm. IMPRESSION: Single living intrauterine measuring about 6 weeks and 2 days. Signer Name: Mayur Jacome MD Signed: 09/07/2019 8:26 PM Workstation Name: [id number]
[2019-09-07 21:22] VITALS: BP 122/48
== END 2019-09-07 21:23 | disposition home or self-care (01) ==
LOC: ED 13:40
DX: O20.0 Threatened abortion (principal); Z3A.01 Less than 8 weeks gestation of pregnancy; Z79.899 Other long term (current) drug therapy; Z98.890 Other specified postprocedural states; Z91.041 Radiographic dye allergy status
CPT/HCPCS: 36415; 76801; 80048; 84702; 85025; 86900; 86901; 99284

== ENCOUNTER 2019-09-21 22:03 | Emergency (ER) | payer MEDICARE ==
[2019-09-21 22:56] LABS: Bilirubin,Urine NEG (Negative); Blood,Urine MOD (Negative); Color,Urine Yellow (Yellow); Mucus,Urine FEW /HPF; Protein,Urine <15 mg/dL mg/dL (Negative); Urobilinogen,Urine < 2.0 mg/dL (<2.0); WBC,Urine < 1.0 /HPF (0.0-6.0)
[2019-09-21 23:01] LABS: Basophils % (Auto) 0.4 % (0.0-1.8); Eosinophils # (Auto) 0.1 K/mm3 (0.0-0.4); Eosinophils % (Auto) 1.8 % (0.0-4.3); Hematocrit 35.5 % (30.3-42.9); Hemoglobin 11.4 gm/dl (10.1-14.3); Lymphocytes # (Auto) 2.1 K/mm3 (1.2-5.4); Lymphocytes % (Auto) 28.1 % (13.4-35.0); Mean Corpuscular HGB Conc 32 % (30-34); Mean Corpuscular Volume 79 fl (79-97); Monocytes # (Auto) 0.5 K/mm3 (0.0-0.8); Monocytes % (Auto) 6.3 % (0.0-7.3); Platelet Count 202 K/mm3 (140-440); Red Blood Count 4.51 M/mm3 (3.65-5.03)
[2019-09-22 00:23] VITALS: BP 138/72
--- NOTE | 2019-09-22 03:10 | Ultrasound Report ---
ULTRASOUND OBSTETRIC INDICATION / CLINICAL INFORMATION: , bleeding. Clinical Gestational Age (GA): 8.3 weeks.days TECHNIQUE: Transabdominal and Transvaginal. COMPARISON: Ultrasound dated 09/07/19 FINDINGS: GESTATIONAL SAC: Well-defined oval shape and intrauterine in location. YOLK SAC: No significant abnormality. EMBRYO/FETUS: No significant abnormality. - [place]-Rump Length = 1.28 cm = 7.4 weeks.days - Heart Rate, beats per minute (if present) = 143 ADNEXA: No significant abnormality. FREE FLUID: None. ADDITIONAL FINDINGS: None. IMPRESSION: 1. Single, living intrauterine with estimated sonographic age of 7.4 weeks.days. Signer Name: Santhosh Lombardi MD Signed: 09/22/2019 3:05 AM Workstation Name: [id number]
--- NOTE | 2019-09-22 03:10 | Ultrasound Report ---
ULTRASOUND OBSTETRIC INDICATION / CLINICAL INFORMATION: , bleeding. Clinical Gestational Age (GA): 8.3 weeks.days TECHNIQUE: Transabdominal and Transvaginal. COMPARISON: Ultrasound dated 09/07/19 FINDINGS: GESTATIONAL SAC: Well-defined oval shape and intrauterine in location. YOLK SAC: No significant abnormality. EMBRYO/FETUS: No significant abnormality. - [place]-Rump Length = 1.28 cm = 7.4 weeks.days - Heart Rate, beats per minute (if present) = 143 ADNEXA: No significant abnormality. FREE FLUID: None. ADDITIONAL FINDINGS: None. IMPRESSION: 1. Single, living intrauterine with estimated sonographic age of 7.4 weeks.days. Signer Name: Santhosh Lombardi MD Signed: 09/22/2019 3:05 AM Workstation Name: [id number]
--- NOTE | 2019-09-22 03:36 | Emergency Department Report ---
ED General Adult HPI - General Chief complaint: Vaginal Bleeding Stated complaint: VAGINAL BLEEDING, FEVER, SORE THROAT Time Seen by Provider: 09/22/19 03:11 Source: patient Mode of arrival: Ambulatory Limitations: No Limitations - History of Present Illness Initial comments: Patient is a 29-year-old female presents emergency room with complaints of int ermittent suprapubic abdominal cramping for 3 weeks. She states that she has also had intermittent vaginal spotting. She states that she has been constipated for approximately 3 days. She states that she has an itchy throat. She denies any nausea, vomiting, diarrhea, sore throat, fever, cough, chest pain, shortness of breath. She states that she is currently 8 weeks . She states her first appointment with her OB doctors in 2 weeks. She states she has a past medical history of many years. She states that she had tubes placed in the right ear when she was a child due to frequent ear infections. She denies any allergies to medications. She states her last menstrual cycle was J anuary 2019. /P:0/A:2. Patient states that she was on antibiotics 2 months ago for an ear infection. Severity scale (0 -10): 8 - Related Data Previous Rx's Medication Instructions Recorded Last Taken Type raNITIdine HCl [Acid Control] 75 mg PO DAILY #30 tablet 01/20/19 Unknown Rx cephALEXin [Keflex] 500 mg PO BID 7 Days #14 capsule 02/15/19 Unknown Rx Benzonatate [Tessalon Perles] 100 mg PO Q8HR PRN #30 capsule 07/16/19 Unknown Rx Ondansetron [Zofran ODT TAB] 4 mg PO ONCE 7 Days #10 tab.rapdis 07/16/19 Unknown Rx methylPREDNISolone [Medrol 4MG 4 mg PO DAILY #1 tab.ds.pk 07/16/19 Unknown Rx DOSEPAK (21 tabs)] Amoxicillin/Potassium Clav 1 each PO BID 10 Days #20 tablet 07/23/19 Unknown Rx [Augmentin 875-125 Tablet] Ciprofloxacin HCl/Dexameth 4 drops TP BID 10 Days #7.5 ml 07/23/19 Unknown Rx [Ciprodex Otic Suspension] Ibuprofen [Motrin 800 MG tab] 800 mg PO Q8HR PRN #30 tablet 07/23/19 Unknown Rx metroNIDAZOLE [Flagyl] 500 mg PO BID 7 Days #14 tab 08/20/19 Unknown Rx Pnv,Calcium 72/Iron/Folic Acid 1 each PO DAILY #30 tablet 09/07/19 Unknown Rx [ Plus Tablet] Cefdinir 300 mg PO BID 10 Days #20 capsule 09/22/19 Unknown Rx Allergies Allergy/AdvReac Type Severity Reaction Status Date / Time Iodinated Contrast Media Allergy Nausea Verified 02/08/19 21:56 [Iodinated Contrast- Oral and IV Dye] ED Review of Systems ROS: Stated complaint: VAGINAL BLEEDING, FEVER, SORE THROAT Other details as noted in HPI Comment: All other systems reviewed and negative ED Past Medical Hx - Past Medical History Previous Medical History?: Yes Additional medical history: menieres disease - Surgical History Past Surgical History?: Yes Additional Surgical History: bilateral ear tubes,multiple as infant, at 12 - Social History Smoking Status: Never Smoker Substance Use Type: None - Medications Home Medications: Home Medications Medication Instructions Recorded Confirmed Last Taken Type raNITIdine HCl [Acid Control] 75 mg PO DAILY #30 tablet 01/20/19 Unknown Rx cephALEXin [Keflex] 500 mg PO BID 7 Days #14 capsule 02/15/19 Unknown Rx Benzonatate [Tessalon Perles] 100 mg PO Q8HR PRN #30 capsule 07/16/19 Unknown Rx Ondansetron [Zofran ODT TAB] 4 mg PO ONCE 7 Days #10 tab.rapdis 07/16/19 Unknown Rx methylPREDNISolone [Medrol 4MG 4 mg PO DAILY #1 tab.ds.pk 07/16/19 Unknown Rx DOSEPAK (21 tabs)] Amoxicillin/Potassium Clav 1 each PO BID 10 Days #20 tablet 07/23/19 Unknown Rx [Augmentin 875-125 Tablet] Ciprofloxacin HCl/Dexameth 4 drops TP BID 10 Days #7.5 ml 07/23/19 Unknown Rx [Ciprodex Otic Suspension] Ibuprofen [Motrin 800 MG tab] 800 mg PO Q8HR PRN #30 tablet 07/23/19 Unknown Rx metroNIDAZOLE [Flagyl] 500 mg PO BID 7 Days #14 tab 08/20/19 Unknown Rx Pnv,Calcium 72/Iron/Folic Acid 1 each PO DAILY #30 tablet 09/07/19 Unknown Rx [ Plus Tablet] Cefdinir 300 mg PO BID 10 Days #20 capsule 09/22/19 Unknown Rx ED Physical Exam - General Limitations: No Limitations General appearance: alert, in no apparent distress - Head Head exam: Present: atraumatic, normocephalic - Eye Eye exam: Present: normal appearance - ENT ENT exam: Present: normal orophraynx (No tonsillar hypertrophy or exudates), mucous membranes moist, other (left TM and canal are normal, right canal is normal, right TM is erythematous with purulence present, possible small TM perforation) - Respiratory Respiratory exam: Present: normal lung sounds bilaterally. Absent: respiratory distress, wheezes, rales, rhonchi, stridor, chest wall tenderness, accessory muscle use, decreased breath sounds, prolonged expiratory - Cardiovascular Cardiovascular Exam: Present: regular rate, normal rhythm, normal heart sounds. Absent: systolic murmur, diastolic murmur, rubs, gallop - GI/Abdominal GI/Abdominal exam: Present: soft, normal bowel sounds. Absent: distended, tenderness, guarding, rebound, rigid - Neurological Exam Neurological exam: Present: alert, oriented X3 - Psychiatric Psychiatric exam: Present: normal affect, normal mood - Skin Skin exam: Present: warm, dry, intact ED Course Vital Signs 09/21/19 22:05 Temperature 98.3 F Pulse Rate 80 Respiratory 16 Rate Blood Pressure 138/72 [Right] O2 Sat by Pulse 100 Oximetry ED Medical Decision Making - Lab Data Result diagrams: 09/21/19 22:25 - Radiology Data Radiology results: report reviewed ULTRASOUND OBSTETRIC INDICATION / CLINICAL INFORMATION: , bleeding. Clinical Gestational Age (GA): 8.3 weeks.days TECHNIQUE: Transabdominal and Transvaginal. COMPARISON: Ultrasound dated 09/07/19 FINDINGS: GESTATIONAL SAC: Well-defined oval shape and intrauterine in location. YOLK SAC: No significant abnormality. EMBRYO/FETUS: No significant abnormality. - Slater-[place]-Rump Length = 1.28 cm = 7.4 weeks.days - Heart Rate, beats per minute (if present) = 143 ADNEXA: No significant abnormality. FREE FLUID: None. ADDITIONAL FINDINGS: None. IMPRESSION: 1. Single, living intrauterine with estimated sonographic age of 7.4 weeks.days. Signer Name: Santhosh Lombardi MD Signed: 09/22/2019 3:05 AM Workstation Name: [id number] Transcribed By: DT Dictated By: Mac Lombardi MD Electronically Authenticated By: Mac Lombardi MD Signed Date/Time: 09/22/19304 DD/ 2 TD/TT: - Medical Decision Making Patient is a 29-year-old female presents emergency room with complaints of intermittent suprapubic abdominal cramping for 3 weeks. She states that she has also had intermittent vaginal spotting. She states that she has been constipated for approximately 3 days. She states that she has an itchy throat. She denies any nausea, vomiting, diarrhea, sore throat, fever, cough, chest pain, shortness of breath. She states that she is currently 8 weeks . She states her first appointment with her OB doctors in 2 weeks. She states she has a past medical history of many years. She states that she had tubes placed in the right ear when she was a child due to frequent ear infections. She denies any allergies to medications. She states her last menstrual cycle was July 25, 2019. /P:0/A:2. Patient states that she was on antibiotics 2 months ago for an ear infection. Vitals are stable. On exam left TM and canal are normal, right canal is normal, right TM is erythematous with purulence present, possible small TM perforation, normal oropharynx, no tonsillar exudates or hypertrophy, breath sounds are clear bilaterally, no wheezing, no rales, no rhonchi, no abdominal tenderness to palpation, no guarding, no rebound, no rigid ity, no peritoneal signs. [place] [address]. UA without signs of UTI. No clinical signs or symptoms of pharyngitis, influenza, pneumonia. examination consistent with otitis media. OB US: 1. Single, living intrauterine with estimated sonographic age of 7.4 weeks.days. hcg quant has increased since her last visit from 9783 to 87774. Discussed all results with patient. Patient has no obstructive symptoms, discussed [id number]-[id number] constipation treatments that are safe in with patient, advised her to increase her water intake and fiber intake. Patient given prescription for cefdnir. advised pt Please take medication as prescribed. Increase your water intake. Increase your fiber intake. May take Metamucil and milk of magnesia [id number] for a couple of days to help with constipation but then stop taking. Please follow-up with a primary care doctor in the next 3 to 5 days and have your ear rechecked. please follow-up with [facility] in the next couple of days. Please continue to take your vitamin [id number]. Return to the emergency room for any new or worsening symptoms. Critical care attestation.: If time is entered above; I have spent that time in minutes in the direct care of this critically ill patient, excluding procedure time. ED Disposition Clinical Impression: Suprapubic cramping, Vaginal spotting, Threatened miscarriage Otitis media Qualifiers: Otitis media type: suppurative Chronicity: acute Laterality: right Recurrence: recurrent Spontaneous tympanic membrane rupture: with spontaneous rupture Qualified Code(s): H66.014 - Acute suppurative otitis media with spontaneous rupture of ear drum, recurrent, right ear Constipation Qualifiers: Constipation type: unspecified constipation type Qualified Code(s): K59.00 - Constipation, unspecified Disposition: TO HOME OR SELFCARE Is pt being admited?: No Does the pt Need Aspirin: No Condition: Stable Instructions: Threatened Miscarriage (ED), Otitis Media (ED) Additional Instructions: Please take medication as prescribed. Increase your water intake. Increase your fiber intake. May take Metamucil and milk of magnesia [id number] for a couple of days to help with constipation but then stop taking. Please follow-up with a primary care doctor in the next 3 to 5 days and have your ear rechecked. please follow-up with [facility] in the next couple of days. Please continue to take your vitamin [id number]. Return to the emergency room for any new or worsening symptoms. today (09/22/2019) [place] [id number] during your last visit your hcg quant was 9783 Prescriptions: Cefdinir 300 mg PO BID 10 Days #20 capsule Referrals: IVORY FREEMAN MD [Staff Physician] - 3-5 Days [facility] [Provider Group] - 3-5 Days [facility] [Outside] - 3-[address] [facility] [Outside] - 3-5 Days [facility] [Provider Group] - 3-5 Days [facility] [Provider Group] - 3-5 Days [facility] [Provider Group] - 3-5 Days Time of Disposition: 03:35 Print Language: ARABIC
== END 2019-09-22 03:45 | disposition home or self-care (01) ==
LOC: ED 22:03
DX: O20.0 Threatened abortion (principal); Z3A.08 8 weeks gestation of pregnancy; O99.611 Diseases of the digestive system complicating pregnancy, first trimester; K59.00 Constipation, unspecified
CPT/HCPCS: 36415; 76801; 76817; 81001; 84702; 85025; 86900; 86901; 99284

== ENCOUNTER 2019-09-22 11:40 | Emergency (ER) | payer MEDICARE ==
--- NOTE | 2019-09-22 12:07 | Emergency Department Report ---
Blank Doc - Documentation Documentation: 29-year-old female that presents with vaginal bleeding and pelvic pain. Stated has seen a sac this morning. Patient was seen yesterday and US yesterday shows heart beat and 7 weeks . This initial assessment/diagnostic orders/clinical plan/treatment(s) is/are subject to change based on patient's health status, clinical progression and re- assessment by fellow clinical providers in the ED. Further treatment and workup at subsequent clinical providers discretion. Patient/guardians urged not to elope from the ED as their condition may be serious if not clinically assessed and managed. Initial orders include: 1- Patient sent to [facility] for further evaluation and treatment 2- labs 3- US OB
--- NOTE | 2019-09-22 12:39 | Emergency Department Report ---
ED HPI - General Chief complaint: OB/Uterine Contractions Stated complaint: 8 WKS /MISCARRIAGE Time Seen by Provider: 09/22/19 12:03 Source: patient Mode of arrival: Ambulatory Limitations: No Limitations - History of Present Illness Initial comments: 29-year-old female presents to the emergency room for having abdominal cramping this morning. Patient reports that she was seen here yesterday was discharged home with a diagnosis of threatened miscarriage. Patient reports that her ultrasound showed that she had a gestational sac with a heartbeat and was approximate 7 weeks 4 days. Patient brings to the emergency room and had back with products of conception. Patient is 3 para 0 with 2 abortions. Last menstrual period was 07/25/2019. MD Complaint: abdominal pain, vaginal bleeding -: This morning Location: pelvis Radiation: suprapubic Severity scale (0 -10): 8 Quality: cramping Consistency: constant Improves with: none Worsens with: none Associated symptoms: vaginal bleeding Vaginal bleeding: heavy, clots :: Yes Number of weeks : 7 - Related Data : 3 Para: 0 Previous Rx's Medication Instructions Recorded Last Taken Type raNITIdine HCl [Acid Control] 75 mg PO DAILY #30 tablet 01/20/19 Unknown Rx cephALEXin [Keflex] 500 mg PO BID 7 Days #14 capsule 02/15/19 Unknown Rx Benzonatate [Tessalon Perles] 100 mg PO Q8HR PRN #30 capsule 07/16/19 Unknown Rx Ondansetron [Zofran ODT TAB] 4 mg PO ONCE 7 Days #10 tab.rapdis 07/16/19 Unknown Rx methylPREDNISolone [Medrol 4MG 4 mg PO DAILY #1 tab.ds.pk 07/16/19 Unknown Rx DOSEPAK (21 tabs)] Amoxicillin/Potassium Clav 1 each PO BID 10 Days #20 tablet 07/23/19 Unknown Rx [Augmentin 875-125 Tablet] Ciprofloxacin HCl/Dexameth 4 drops TP BID 10 Days #7.5 ml 07/23/19 Unknown Rx [Ciprodex Otic Suspension] Ibuprofen [Motrin 800 MG tab] 800 mg PO Q8HR PRN #30 tablet 07/23/19 Unknown Rx metroNIDAZOLE [Flagyl] 500 mg PO BID 7 Days #14 tab 08/20/19 Unknown Rx Pnv,Calcium 72/Iron/Folic Acid 1 each PO DAILY #30 tablet 09/07/19 Unknown Rx [ Plus Tablet] Cefdinir 300 mg PO BID 10 Days #20 capsule 09/22/19 Unknown Rx HYDROcodone/APAP 5-325 [[place] 1 each PO Q6HR PRN #12 tablet 09/22/19 Unknown Rx 5/325] Allergies Allergy/AdvReac Type Severity Reaction Status Date / Time Iodinated Contrast Media Allergy Nausea Verified 02/08/19 21:56 [Iodinated Contrast- Oral and IV Dye] ED Review of Systems ROS: Stated complaint: 8 WKS /MISCARRIAGE Other details as noted in HPI Comment: All other systems reviewed and negative ED Past Medical Hx - Past Medical History Additional medical history: menieres disease - Surgical History Additional Surgical History: bilateral ear tubes,multiple as infant, at 12 - Social History Smoking Status: Never Smoker Substance Use Type: None - Medications Home Medications: Home Medications Medication Instructions Recorded Confirmed Last Taken Type raNITIdine HCl [Acid Control] 75 mg PO DAILY #30 tablet 01/20/19 Unknown Rx cephALEXin [Keflex] 500 mg PO BID 7 Days #14 capsule 02/15/19 Unknown Rx Benzonatate [Tessalon Perles] 100 mg PO Q8HR PRN #30 capsule 07/16/19 Unknown Rx Ondansetron [Zofran ODT TAB] 4 mg PO ONCE 7 Days #10 tab.rapdis 07/16/19 Unknown Rx methylPREDNISolone [Medrol 4MG 4 mg PO DAILY #1 tab.ds.pk 07/16/19 Unknown Rx DOSEPAK (21 tabs)] Amoxicillin/Potassium Clav 1 each PO BID 10 Days #20 tablet 07/23/19 Unknown Rx [Augmentin 875-125 Tablet] Ciprofloxacin HCl/Dexameth 4 drops TP BID 10 Days #7.5 ml 07/23/19 Unknown Rx [Ciprodex Otic Suspension] Ibuprofen [Motrin 800 MG tab] 800 mg PO Q8HR PRN #30 tablet 07/23/19 Unknown Rx metroNIDAZOLE [Flagyl] 500 mg PO BID 7 Days #14 tab 08/20/19 Unknown Rx Pnv,Calcium 72/Iron/Folic Acid 1 each PO DAILY #30 tablet 09/07/19 Unknown Rx [ Plus Tablet] Cefdinir 300 mg PO BID 10 Days #20 capsule 09/22/19 Unknown Rx HYDROcodone/APAP 5-325 [[place] 1 each PO Q6HR PRN #12 tablet 09/22/19 Unknown Rx 5/325] ED Physical Exam - General Limitations: No Limitations General appearance: alert, in distress - Head Head exam: Present: atraumatic, normocephalic - External exam: Present: bleeding ED Course Vital Signs 09/22/19 09/22/19 12:06 12:56 Temperature 98.2 F Pulse Rate 95 H Respiratory 20 18 Rate Blood Pressure 128/80 O2 Sat by Pulse 98 Oximetry ED Medical Decision Making - Lab Data Result diagrams: 09/22/19 12:42 - Radiology Data Radiology results: report reviewed [facility] [address] [place] [address] Ultrasound Report Signed Patient: MARIELENA GUTHRIE MR#: [id number] : 1990 Acct:[id number] Age/Sex: 29 / F ADM Date: 09/22/19 Loc: ED Attending Dr: Ordering Physician: KEITH DE JESUS NP Date of Service: 09/22/19 Procedure(s): US OB transvaginal Accession Number(s): [id number] cc: KEITH DE JESUS NP ULTRASOUND OB LESS THAN 14 WEEKS FETUS ULTRASOUND OB TRANSVAGINAL HISTORY: Vaginal bleeding COMPARISON: Yesterday TECHNIQUE: Routine transabdominal and transvaginal OB ultrasound performed. FINDINGS: The uterus is anteverted and measures 11.6 x 6.5 x 6.1 cm. No intrauterine is demonstrated on today's exam. The endometrial stripe is thickened and complex measuring 1.8 cm. The cervix is unremarkable. The right ovary is not visualized. The left ovary measures 4.4 x 2.1 x 2.2 cm and contains a corpus luteum cyst. No pelvic fluid collection. IMPRESSION No intrauterine is visualized on transabdominal or transvaginal imaging. Spontaneous with retained products of conception is suspected. Please correlate with the patient's clinical presentation. Signer Name: John Rashid Jr, MD Signed: 09/22/2019 2:29 PM Workstation Name: [id number] Transcribed By: TTR Dictated By: JOHN RASHID JR, MD Electronically Authenticated By: JOHN RASHID JR, MD Signed Date/Time: 09/22/19 1429 DD/ 23 TD/TT: - Medical Decision Making 29-year-old female presents to the emergency room for having abdominal cramping this morning. Patient reports that she was seen here yesterday was discharged home with a diagnosis of threatened miscarriage. Patient reports that her ultrasound showed that she had a gestational sac with a heartbeat and was approximate 7 weeks 4 days. Patient brings to the emergency room and had back with products of conception. Patient is 3 para 0 with 2 abortions. Last menstrual period was 07/25/2019. CBC, HCG quant, ultrasound pain medication [place] 7.5. Patient has brought in a product of conception in just delivered her placenta while in exam room. Critical care attestation.: If time is entered above; I have spent that time in minutes in the direct care of this critically ill patient, excluding procedure time. ED Disposition Clinical Impression: Spontaneous miscarriage Disposition: DC-01 TO HOME OR SELFCARE Is pt being admited?: No Does the pt Need Aspirin: No Condition: Stable Instructions: Spontaneous Miscarriage (ED) Prescriptions: HYDROcodone/APAP 5-325 [[place] 5/325] 1 each PO Q6HR PRN #12 tablet PRN Reason: Pain Referrals: [facility] [Provider Group] - 3-5 Days [facility] [Provider Group] - 3-5 Days [facility] MD [Staff Physician] - 3-5 Days
[2019-09-22] MEDS ORDERED: HYDROcodone/ACETAMINOPHEN 7.5-325MG TAB PO ONE (12:46)
[2019-09-22 13:08] LABS: Basophils # (Auto) 0.1 K/mm3 (0.0-0.1); Basophils % (Auto) 0.7 % (0.0-1.8); Eosinophils # (Auto) 0.1 K/mm3 (0.0-0.4); Eosinophils % (Auto) 1.4 % (0.0-4.3); Hematocrit 35.6 % (30.3-42.9); Hemoglobin 11.7 gm/dl (10.1-14.3); Lymphocytes # (Auto) 1.3 K/mm3 (1.2-5.4); Lymphocytes % (Auto) 17.9 % (13.4-35.0); Mean Corpuscular HGB Conc 33 % (30-34); Mean Corpuscular Volume 78 fl (79-97); Monocytes # (Auto) 0.5 K/mm3 (0.0-0.8); Monocytes % (Auto) 6.7 % (0.0-7.3); Platelet Count 201 K/mm3 (140-440); Red Blood Count 4.56 M/mm3 (3.65-5.03); Red Cell Distribution Width 16.2 % (13.2-15.2)
--- NOTE | 2019-09-22 14:33 | Ultrasound Report ---
ULTRASOUND OB LESS THAN 14 WEEKS FETUS ULTRASOUND OB TRANSVAGINAL HISTORY: Vaginal bleeding COMPARISON: Yesterday TECHNIQUE: Routine transabdominal and transvaginal OB ultrasound performed. FINDINGS: The uterus is anteverted and measures 11.6 x 6.5 x 6.1 cm. No intrauterine is demonstrated on today's exam. The endometrial stripe is thickened and complex measuring 1.8 cm. The cervix is unre markable. The right ovary is not visualized. The left ovary measures 4.4 x 2.1 x 2.2 cm and contains a corpus l uteum cyst. No pelvic fluid collection. IMPRESSION No intrauterine is visualized on transabdominal or transvaginal imaging. Spontaneous aborti on with retained products of conception is suspected. Please correlate with the patient's clinical pr esentation. Signer Name: John Rashid Jr, MD Signed: 09/22/2019 2:29 PM Workstation Name: [id number]
[2019-09-22 14:52] VITALS: BP 124/74
== END 2019-09-22 15:02 | disposition home or self-care (01) ==
LOC: ED 11:40
DX: O03.9 Complete or unspecified spontaneous abortion without complication (principal)
CPT/HCPCS: 36415; 76801; 76817; 84702; 85025